=== PATIENT | male | born 2000 | race Caucasian/White ===

== ENCOUNTER 2020-06-07 08:19 | Emergency (ER) | payer SELFPAY ==
[~2020-06-07] VITALS: Ht 167.6 cm; Wt 59.0 kg
--- NOTE | 2020-06-07 08:45 | Emergency Department Note ---
History of Present Illnes History of Present Illness Chief Complaint: COVID PUI History of Present Illness This is a 20 year old male Chief Complaint Comment PATIENT IN FROM HOME WITH COMPLAINTS OF SHORTNESS OF BREATH X 2 DAYS; STATES THAT HE HAD A FEVER YESTERDAY, BUT TOOK TYLENOL AND FELT BETTER. STATES SHORTNESS OF BREATH IS BETTER WHEN HE IS WALKING AROUND; COMPLAINS OF PAIN RATED 7/10 TO NBECK AND SHOULDERS. STATES THAT HE RECENTLY STARTED WORKING OUT. Historian: Patient, Family Member Arrival Mode: Car Taper Operator Required: No Onset (how long ago): day(s) (2) Location: Chest Quality: SoB Radiation: Reports non-radiation Severity: mild Onset quality: gradual Duration (how long): day(s) (2) Timing of current episode: intermittent Progression: unchanged Chronicity: new Context: Denies recent illness, Denies recent surgery Relieving factors: none Exacerbating factors: none Associated symptoms: Reports denies other symptoms Treatments prior to arrival: none Past Medical/Family History Physician Review I have reviewed the patient's past medical and family history. Any updates have been documented here. Past Medical History Recent Fever: Yes Clinical Suspicion of Infectio: Yes New/Unexplained Change in Ment: No Past Medical History: None Past Surgical History: None Social History Smoking Cessation: Current every day smoker Counseling Performed: Yes Alcohol Use: Occasional Any Illegal Drug Use: Yes (marijuana) Review of Systems Review of Systems Constitutional: Reports no symptoms EENTM: Reports no symptoms Cardiovascular: Reports no symptoms Respiratory: Reports as per HPI Gastrointestinal: Reports no symptoms Genitourinary: Reports no symptoms Musculoskeletal: Reports no symptoms Integumentary: Reports no symptoms Neurological: Reports no symptoms Psychological: Reports no symptoms Endocrine: Reports no symptoms Hematological/Lymphatic: Reports no symptoms Physical Exam Related Data Allergies: Coded Allergies: No Known Allergies (Unverified , 06/07/20) Triage Vital Signs Vital Signs Date Time Temp Pulse Resp B/P (MAP) Pulse Ox O2 Delivery O2 Flow Rate FiO2 06/07/20 08:22 97.0 92 20 138/84 100 Room Air Vital signs reviewed: Yes Physical Exam CONSTITUTIONAL Constitutional: Present well-developed, Present well-nourished HENT HENT: Present normocephalic, Present atraumatic, Present oropharynx clear/moist, Present nose normal HENT L/R: Present left ext ear normal, Present right ext ear normal EYES Eyes: Reports PERRL, Reports conjunctivae normal NECK Neck: Present ROM normal PULMONARY Pulmonary: Present effort normal, Present breath sounds normal CARDIOVASCULAR Cardiovascular: Present regular rhythm, Present heart sounds normal, Present capillary refill normal, Present normal rate GASTROINTESTINAL Abdominal: Present soft, Present nontender, Present bowel sounds normal GENITOURINARY Genitourinary: Present exam deferred SKIN Skin: Present warm, Present dry MUSCULOSKELETAL Musculoskeletal: Present ROM normal NEUROLOGICAL Neurological: Present alert, Present oriented x 3, Present no gross motor or sensory deficits PSYCHOLOGICAL Psychological: Present mood/affect normal, Present judgement normal Results Imaging Imaging results reviewed: Yes Assessment & Plan Medical Decision Making MDM 21-year-old male presents for shortness of breath 2 days. He denies any medical history. States it is improved by getting up and walking around. He is perk negative. No chest pain. Initial differential includes viral etiology versus pneumonia, and others. Chest x-ray and exam are unremarkable. No emergent process this time. He was swabbed for flu and virus with results pending. Doubt emergent process at this time. I discussed results patient as well as expected disease time course and management. They will follow up with their primary care provider or return to the emergency department for new or worsening symptoms. Patient's appropriate for discharge. Part of this note was dictated with Azam and is subject to recognition errors. Reassessment Reassessment time: 08:44 Reassessment Well appearing, NAD Assessment & Plan Final Impression: (1) Shortness of breath Depart Disposition: HOME, SELF-CARE Last Vital Signs Date Time Temp Pulse Resp B/P (MAP) Pulse Ox O2 Delivery O2 Flow Rate FiO2 06/07/20 08:22 97.0 92 20 138/84 100 Room Air BRAD ESPANA MD Jun 07, 2020 08:45
--- NOTE | 2020-06-07 09:40 | NUR ---
Flu negative per MO in lab. notified.
--- NOTE | 2020-06-07 09:42 | Diagnostic Imaging Report ---
EXAMINATION: CHEST SINGLE (PORTABLE) INDICATION: Shortness of breath COMPARISON: None FINDINGS: LINES/TUBES:None LUNGS:The lungs are well-inflated. No focal consolidation or pulmonary edema. PLEURA:No pleural effusion or pneumothorax. MEDIASTINUM:The cardiomediastinal silhouette appears normal in size and shape. BONES/SOFT TISSUES:No acute osseous injury. ABDOMEN:No free air under the diaphragm. IMPRESSION: No focal pneumonia or pulmonary edema. Signed by: Shannon Rodriguez MD on 06/07/2020 9:39 AM
== END 2020-06-07 09:50 | disposition home or self-care (01) ==
LOC: ER 08:50
DX: R06.02 Shortness of breath (principal); Z11.59 Encounter for screening for other viral diseases; F17.210 Nicotine dependence, cigarettes, uncomplicated
CPT/HCPCS: 71045; 87400; 99284; U0002